=== PATIENT | female | born 1990 | race American Indian/Alaskan Native ===

== ENCOUNTER 2022-01-15 10:17 | Emergency (ER) | payer SELFPAY ==
[2022-01-15] MEDS ORDERED: ONDANSETRON 4 MG ODT TAB PO ONE (12:33)
[2022-01-15] MEDS ORDERED: IBUPROFEN 600 MG TAB PO ONE (12:33)
[2022-01-15] MEDS ORDERED: ACETAMINOPHEN 500 MG TAB PO ONE (12:33)
[2022-01-15 13:42] LABS: Mucus,Urine 3+ /HPF
[2022-01-15 13:51] LABS: Bilirubin,Urine Negative (Negative); Blood,Urine Moderate (Negative); Color,Urine Amber (Yellow); RBC,Urine > 182.0 /HPF (0.0-6.0)
[2022-01-15 13:52] LABS: Urobilinogen,Urine < 2.0 mg/dL (<2.0)
[2022-01-15 14:43] LABS: Alanine Aminotransferase 11 units/L (7-56); Albumin 4.1 g/dL (3.9-5); BUN/Creatinine Ratio 15; Blood Urea Nitrogen 12 mg/dL (7-17); Calcium 9.5 mg/dL (8.4-10.2); Hemolysis Index 2
[2022-01-15 14:46] LABS: Hematocrit 40.2 % (30.3-42.9); Hemoglobin 13.9 gm/dl (10.1-14.3); Mean Corpuscular Volume 94 fl (79-97); Red Blood Count 4.26 M/mm3 (3.65-5.03)
[2022-01-15 14:47] LABS: Mean Corpuscular HGB Conc 35 % (30-34); Platelet Count 277 K/mm3 (140-440); Red Cell Distribution Width 13.6 % (13.2-15.2)
--- NOTE | 2022-01-15 14:50 | XRay Report ---
XR chest 1V ap INDICATION / CLINICAL INFORMATION: cough COMPARISON: None available. FINDINGS: SUPPORT DEVICES: None. HEART / MEDIASTINUM: No significant abnormality. LUNGS / PLEURA: Lungs are clear. Costophrenic sulci are sharp. No pneumothorax. ADDITIONAL FINDINGS: No significant additional findings. IMPRESSION: 1. No acute findings. Signer Name: Polo Fishman MD Signed: 01/15/2022 2:45 PM Workstation Name: [id number]
[2022-01-15 15:10] LABS: Basophils % (Manual) 0 % (0.0-1.8); Eosinophils % (Manual) 0 % (0.0-4.3); Total Cells Counted 100
[2022-01-15 15:13] LABS: Platelet Estimate Consistent w Auto; Poikilocytosis Few; Schistocytes Rare; Spherocytes Few
--- NOTE | 2022-01-15 15:19 | Emergency Department Report ---
- General Chief Complaint: Sore Throat Stated Complaint: SORE THROAT, BODY/HEAD ACHES Source: patient Mode of arrival: Ambulatory Limitations: No Limitations - History of Present Illness Initial Comments: Patient is a 31-year-old female who presents to the ED with complaint of acute onset persistent diffuse body aches and pains, nasal and sinus congestion, diffuse headache, sore throat, persistent dry cough, chills and subjective fever for the last 3 days. Patient states that she has also had no appetite and has been feeling generalized weakness. Patient states that she performed a home- based COVID-19 diagnostic test and she tested positive. Patient states that when her symptoms are getting worse she decided come to the ED for evaluation. Patient denies dizziness, syncope, nausea and vomiting, diarrhea, abdominal pain, dysuria, urinary frequency and urgency, hematemesis, chest pain and shor tness of breath, neck pain or change in vision and vaginal bleeding or vaginal discharge. MD Complaint: cough, sore throat, rhinorrhea, nasal congestion, sinus pain, other (Diffuse body aches and pains; tested positive for COVID-19) -: days(s) (3) Severity: moderate Severity scale (0 -10): 6 Quality: sharp, aching Consistency: constant Improves With: nothing Worsens With: nothing Associated Symptoms: denies other symptoms, myalgias, headache, rhinorrhea, nasal congestion, sore throat, cough. denies: fever, diaphoresis, stiff neck, chest pain, shortness of breath, abdominal pain, nausea, vomiting, diarrhea, dysuria, rash, confusion, right sweats, epistaxis, hoarseness, ear pain, other Treatments Prior to Arrival: Ibuprofen - Related Data Previous Rx's Medication Instructions Recorded Last Taken Type Acetaminophen [Tylenol] 500 mg PO Q6HR PRN #30 tablet 01/15/22 Unknown Rx Ascorbic Acid [Vitamin C] 1,000 mg PO BID #30 tab 01/15/22 Unknown Rx Benzonatate [Tessalon Perles] 100 mg PO Q8HR #30 cap 01/15/22 Unknown Rx Cetirizine HCl [Zyrtec 10mg tab] 10 mg PO DAILY #30 tab 01/15/22 Unknown Rx Allergies Allergy/AdvReac Type Severity Reaction Status Date / Time omeprazole [From Prilosec] Allergy Rash Verified 01/15/22 10:49 ED Review of Systems ROS: Stated complaint: SORE THROAT, BODY/HEAD ACHES Other details as noted in HPI Constitutional: denies: chills, fever Eyes: denies: eye pain, eye discharge, vision change ENT: throat pain, congestion. denies: ear pain Respiratory: cough. denies: shortness of breath, wheezing Cardiovascular: denies: chest pain, palpitations Endocrine: no symptoms reported Gastrointestinal: denies: abdominal pain, nausea, vomiting, diarrhea Genitourinary: denies: urgency, dysuria, frequency, hematuria, discharge, abnormal menses, dyspareunia Musculoskeletal: back pain, arthralgia, myalgia. denies: joint swelling Skin: denies: rash, lesions Neurological: headache. denies: weakness, paresthesias Psychiatric: denies: anxiety, depression Hematological/Lymphatic: denies: easy bleeding, easy bruising ED Past Medical Hx - Past Medical History Previous Medical History?: No - Surgical History Additional Surgical History: dental - Medications Home Medications: Home Medications Medication Instructions Recorded Confirmed Last Taken Type Acetaminophen [Tylenol] 500 mg PO Q6HR PRN #30 tablet 01/15/22 Unknown Rx Ascorbic Acid [Vitamin C] 1,000 mg PO BID #30 tab 01/15/22 Unknown Rx Benzonatate [Tessalon Perles] 100 mg PO Q8HR #30 cap 01/15/22 Unknown Rx Cetirizine HCl [Zyrtec 10mg tab] 10 mg PO DAILY #30 tab 01/15/22 Unknown Rx ED Physical Exam - General Limitations: No Limitations General appearance: alert, in no apparent distress - Head Head exam: Present: atraumatic, normocephalic, normal inspection - Eye Eye exam: Present: normal appearance, PERRL, EOMI Pupils: Present: normal accommodation - ENT ENT exam: Present: normal orophraynx, mucous membranes moist, TM's normal bilaterally, normal external ear exam, other (Grossly congested nasal passages) - Neck Neck exam: Present: normal inspection, full ROM. Absent: tenderness - Respiratory Respiratory exam: Present: normal lung sounds bilaterally. Absent: respiratory distress - Cardiovascular Cardiovascular Exam: Present: regular rate, normal rhythm, normal heart sounds. Absent: systolic murmur, diastolic murmur, rubs, gallop - GI/Abdominal GI/Abdominal exam: Present: soft, normal bowel sounds. Absent: tenderness, guarding, rebound, rigid, hyperactive bowel sounds, hypoactive bowel sounds, organomegaly, bruit - Extremities Exam Extremities exam: Present: normal inspection, full ROM, normal capillary refill. Absent: tenderness - Back Exam Back exam: Present: normal inspection, full ROM. Absent: tenderness, CVA tenderness (R), CVA tenderness (L), muscle spasm, paraspinal tenderness, vertebral tenderness - Neurological Exam Neurological exam: Present: alert, oriented X3, CN II-XII intact, normal gait, reflexes normal - Psychiatric Psychiatric exam: Present: normal affect, normal mood - Skin Skin exam: Present: warm, dry, intact, normal color. Absent: rash ED Course Vital Signs 01/15/22 01/15/22 01/15/22 10:44 12:57 16:02 Temperature 98.6 F 98.8 F Pulse Rate 100 H 89 Respiratory 18 20 Rate Blood Pressure 115/84 110/72 [Left] O2 Sat by Pulse 97 98 99 Oximetry ED Medical Decision Making - Lab Data Result diagrams: 01/15/22 12:47 01/15/22 12:47 - Radiology Data Radiology results: report reviewed, image reviewed [facility] [address] [place] [address] XRay Report Signed Patient: KATARINA BURNHAM MR#: [id number] : 1990 Acct:[id number] Age/Sex: 31 / F ADM Date: 01/15/22 Loc: ED Attending Dr: Ordering Physician: TEAGAN TUCKER Date of Service: 01/15/22 Procedure(s): XR chest 1V ap Accession Number(s): [id number] cc: TEAGAN TUCKER Fluoro Time In Minutes: XR chest 1V ap INDICATION / CLINICAL INFORMATION: cough COMPARISON: None available. FINDINGS: SUPPORT DEVICES: None. HEART / MEDIASTINUM: No significant abnormality. LUNGS / PLEURA: Lungs are clear. Costophrenic sulci are sharp. No pneumothorax. ADDITIONAL FINDINGS: No significant additional findings. IMPRESSION: 1. No acute findings. Signer Name: Polo Fishman MD Signed: 01/15/2022 2:45 PM Workstation Name: [id number] Transcribed By: CS Dictated By: Polo Fishman MD Electronically Authenticated By: Polo Fishman MD Signed Date/Time: 01/15/221444 DD/ 44 TD/TT: - Medical Decision Making This is a 31-year-old female who presents to the ED with complaint of acute onset persistent diffuse body aches and pains, nasal and sinus congestion, diffuse headache, sore throat, persistent dry cough, chills and subjective fever for the last 3 days. Patient states that she has also had no appetite and has been feeling generalized weakness. Patient states that she performed a home- based COVID-19 diagnostic test and she tested positive. Patient states that when her symptoms are getting worse she decided come to the ED for evaluation. In the ED, patient is alert and oriented x3 and is not in any distress. Lab test results were reviewed and are all nonactionable. Patient was treated for pain in the ED. Chest x-ray showed no acute cardiopulmonary abnormalities or pneumonitis. On reevaluation, patient's pain is well controlled medication. Patient will discharge home on medications and advised to self quarantine at home for 5 days since she had tested positive to COVID-19 infection at home. Patient was also advised to return to the ED immediately if symptoms get worse, otherwise follow-up with her primary care physician in 7 to 10 days for reevaluation. - Differential Diagnosis COVID-19; URI; viral syndrome; bronchitis; pneumonia; Critical care attestation.: If time is entered above; I have spent that time in minutes in the direct care of this critically ill patient, excluding procedure time. ED Disposition Clinical Impression: Viral URI with cough, Suspected 2019 novel coronavirus infection Disposition: HOME / SELF CARE / HOMELESS Is pt being admited?: No Does the pt Need Aspirin: No Condition: Stable Instructions: COVID-19 Frequently Asked Questions, COVID-19, Cough, Adult, [id number], Upper Respiratory Infection, Adult, [id number] Additional Instructions: All lab test results were reviewed and are all nonactionable. Chest x-ray showed no acute abnormalities. Therefore take medications as advised, drink plenty of fluids, self quarantine at home for 5 days due to your COVID diagnosis. Return to the ED immediately if symptoms get worse Prescriptions: Acetaminophen [Tylenol] 500 mg PO Q6HR PRN #30 tablet PRN Reason: Pain , Severe (7-10) Benzonatate [Tessalon Perles] 100 mg PO Q8HR #30 cap Ascorbic Acid [Vitamin C] 1,000 mg PO BID #30 tab Cetirizine HCl [Zyrtec 10mg tab] 10 mg PO DAILY #30 tab Referrals: [facility] [Provider Group] - 7-10 days Time of Disposition: 15:19 Print Language: NEPALESE
[2022-01-15 16:03] VITALS: BP 110/72
== END 2022-01-15 16:02 | disposition home or self-care (01) ==
LOC: ED 10:17
DX: J06.9 Acute upper respiratory infection, unspecified (principal); Z20.822 Contact with and (suspected) exposure to COVID-19
CPT/HCPCS: 36415; 71045; 80053; 81001; 84703; 85007; 85025; 99284; J3490; Q0162